=== PATIENT | female | born 1980 | race Caucasian/White ===

== ENCOUNTER → 2023-09-02 13:17 | Outpatient (REF) | payer OTHER, SELFPAY | LOC: WDC 13:17 | PROVIDERS: ATTENDING PHYSICIAN Physician Assistant Medical | DX: Z12.31 Encounter for screening mammogram for malignant neoplasm of breast (principal) | CPT/HCPCS: 77063; 77067 ==

== ENCOUNTER 2024-12-28 13:11 | Outpatient (RCR) | payer OTHER, SELFPAY | END 2024-12-28 23:59 | disposition home or self-care (01) | LOC: RPT 13:11 | PROVIDERS: ATTENDING PHYSICIAN Nurse Practitioner Adult Health; FAMILY PHYSICIAN Physician Assistant Medical | DX: R35.0 Frequency of micturition (principal); M62.89 Other specified disorders of muscle; Z73.6 Limitation of activities due to disability; N81.10 Cystocele, unspecified; N81.6 Rectocele | CPT/HCPCS: 97110; 97112; 97162; 97530 ==

== ENCOUNTER 2025-01-18 13:13 | Outpatient (RCR) | payer OTHER, SELFPAY | END 2025-01-18 23:59 | disposition home or self-care (01) | LOC: RPT 13:13 | PROVIDERS: ATTENDING PHYSICIAN Nurse Practitioner Adult Health; FAMILY PHYSICIAN Physician Assistant Medical | DX: R35.0 Frequency of micturition (principal); M62.89 Other specified disorders of muscle; Z73.6 Limitation of activities due to disability; N81.10 Cystocele, unspecified; N81.6 Rectocele | CPT/HCPCS: 97014; 97110; 97112; 97140; 97530 ==

== ENCOUNTER 2025-02-01 12:24 | Outpatient (RCR) | payer OTHER, SELFPAY | END 2025-02-01 23:59 | disposition home or self-care (01) | LOC: RPT 12:24 | PROVIDERS: ATTENDING PHYSICIAN Nurse Practitioner Adult Health; FAMILY PHYSICIAN Physician Assistant Medical | DX: R35.0 Frequency of micturition (principal); M62.89 Other specified disorders of muscle; Z73.6 Limitation of activities due to disability; N81.10 Cystocele, unspecified; N81.6 Rectocele | CPT/HCPCS: 97110; 97112; 97530 ==